=== PATIENT | male | born 1945 | race Caucasian/White ===

== ENCOUNTER 2016-09-22 18:36 | Inpatient (IN) | payer MEDICARE ==
--- NOTE | ~2016-09-22 | EGD ---
EGD REPORT [facility] [address] [address] NAME: ANUSHKA PINEDA : [birth year] STATUS : ADM IN PAT#: [id number] AGE: 71 ADM/REG DATE : 09/22/16 MR#: [id number] REPORT SERV DATE: 09/26/16 DICTATED BY: MAYRA HOLDEN DATE: 09/26/16 REPORT STATUS : Draft [facility] DATE: 09/26/16 Endoscopy Center Patient Name: Anushka Pineda Date of : 1945 Attending MD: MAYRA HOLDEN MD Procedure Date No Time: 09/26/2016 Procedure: Upper GI endoscopy Indications: Iron deficiency anemia Referring MD: Kristina Sanders Medicines: Propofol per Anesthesia Complications: No immediate complications. Procedure: Pre-Anesthesia Assessment: - ASA Grade Assessment: III - A patient with severe systemic disease. After obtaining informed consent, the endoscope was passed under direct vision. Throughout the procedure, the patient's blood pressure, pulse, and oxygen saturations were monitored continuously. The GIF [id number] was introduced through the mouth, and advanced to the third part of duodenum. The upper GI endoscopy was accomplished without difficulty. The patient tolerated the procedure well. Findings: One 15 mm pedunculated polyp with no bleeding and no stigmata of recent bleeding was found in the gastric antrum. Biopsies were taken with a cold forceps for histology. Estimated blood loss: none. The exam was otherwise without abnormality. Impression: - One gastric polyp. Biopsied. - The examination was otherwise normal. Recommendation: - Await pathology results. Procedure Code(s): --- Professional --- 83592, Esophagogastroduodenoscopy, flexible, transoral; with biopsy, single or multiple Diagnosis Code(s): --- Professional --- K31.7, Polyp of stomach and duodenum D50.9, Iron deficiency anemia, unspecified CPT copyright 2013 [employer]. All rights reserved. EGD REPORT [facility] [address] [facility] [place]. [address] NAME: ANUSHKA PINEDA : [birth year] STATUS : ADM IN [facility]#: [id number] AGE: 71 ADM/REG DATE : 09/22/16 MR#: [id number] REPORT SERV DATE: 09/26/16 DICTATED BY: MAYRA HOLDEN. DATE: 09/26/16 REPORT STATUS : Draft TRANSCRIBED BY: [employer] DATE: 09/26/16 The codes documented in this report are preliminary and upon deicer repairer review may be revised to meet current compliance requirements. MAYRA HOLDEN MD 09/26/2016 7:47 AM This report has been signed electronically. Number of Addenda: 0 Note Initiated On: 09/26/2016 7:03 AM Scope Withdrawal Time 0 hours 0 minutes 0 seconds [address] [facility] [place] [address]
--- NOTE | ~2016-09-22 | DS ---
Discharge Summary [facility] [address] [place]. [address] NAME: ANUSHKA CISNEROS : [birth year] STATUS : DIS IN PAT#: [id number] AGE: 71 ADM/REG DATE : 09/22/16 MR#: [id number] REPORT SERV DATE: 09/29/16 DICTATED BY: JESSICA PRATT DATE: 09/28/16 REPORT STATUS : Draft TRANSCRIBED BY: MODL DATE: 09/28/16 ADMISSION DATE: 09/22/2016 DISCHARGE DATE: 09/28/2016 DISCHARGE DIAGNOSES: 1. Symptomatic anemia with iron deficiency anemia. 2. Possible gastrointestinal bleed since the Hemoccult was positive, but his upper and lower endoscopy was negative for any bleeding source. 3. Chronic atrial fibrillation. 4. Eliquis use at home. We are going to resume the Eliquis on discharge. 5. Chronic kidney disease 3. 6. Diabetes mellitus. A1c was 6.0. The patient did not require any insulin use during the hospitalization, suspect to have hypoglycemia episodes with this syncopal episode at home. Therefore, we are going to discontinue his long-acting insulin and decrease his Novolin R insulin down to 10 units a day. CONSULTANTS: Dr. Will and Dr. Oreilly. PROCEDURE: An upper endoscopy and a lower GI endoscopy. HISTORY OF PRESENT ILLNESS: This is a 71-year-old male patient, who has multiple medical problems including chronic atrial fibrillation, Eliquis use, heart failure, and chronic kidney disease, came to the hospital with recurrent syncopal episode at home. Please see dictated H and P. HOSPITAL COURSE: Please see dictated interim discharge summary done by Dr. Alvarenga. The patient was admitted to hospital with a syncopal episode, had a workup for GI due to worsening anemia with worsening renal failure. His Hemoccult was positive, and GI was consulted. They did upper and lower endoscopy. It did not show any significant bleeding or evidence of bleeding. He is tolerating diet and does not have any gypsy bleeding episodes at all. Had a stable hospitalization. Interestingly, the patient did not require any long-acting insulin for seven days while he was in the hospital. He was at a higher dose at home and his A1c was 6.0. Highly suspect to have hypoglycemia episodes at home with long-acting and immediate-acting insulin on board. Therefore, we are going to discontinue the long-acting insulin. I am cutting down his Novolin R down to 10 units once a day and also highly recommend making blood glucose log to see if they need to trend the issues. I explained to the patient and he voiced understanding. DISCHARGE MEDICATIONS: 1. Continue IV medication including Norvasc 10 mg once a day. 2. Wellbutrin 150 mg twice a day. Discharge Summary [address] [address] NAME: ANUSHKA CISNEROS : [birth year] STATUS : DIS IN PAT#: [id number] AGE: 71 ADM/REG DATE : 09/22/16 MR#: [id number] REPORT SERV DATE: 09/29/16 DICTATED BY: JESSICA PRATT DATE: 09/28/16 REPORT STATUS : Draft TRANSCRIBED BY: TAWANDA DATE: 09/28/16 3. Vitamin B 1000 mcg once a day. 4. Flexeril 10 mg twice a day. 5. Vitamin D 1000 units once a day. 6. Lanoxin 0.25 mg once a day. 7. Lasix 20 mg once a day. 8. Imdur 30 mg once a day. 9. Synthroid 50 mcg once a day. 10.Antivert twice a day. 11.Remeron 50 mg once at nighttime. 12.Lopressor 50 mg twice a day. 13.Fish oil twice a day. 14.Prilosec 20 mg twice a day. 15.Flomax 0.4 mg once a day. 16.Aspirin 81 mg once a day. 17.Crestor 5 mg once at night. 18.Eliquis 5 mg twice a day to be resumed on discharge. 19.Tryon as needed. 20.Prinivil 20 mg once a day. 21.Nitrostat as needed. 22.MiraLAX powder once a day. 23.Novolin R was decreased to 10 units a day. 24.Lantus was discontinued. 25.Ferrous sulfate 300 mg twice a day. DISPOSITION: The patient is discharged to home in stable condition after maximizing inpatient benefit. TIME SPENT: More than 30 minutes in discharge. DICTATED BY: Pari Armas/TAWANDA Jessica Pratt M.D. / [id number] CC: Pari Armas DO
--- NOTE | ~2016-09-22 | HP ---
History And Physical [facility] [address] [facility] [place]. [address] NAME: ANUSHKA CISNEROS : [birth year] STATUS : ADM IN [facility]#: [id number] AGE: 71 ADM/REG DATE : 09/22/16 MR#: [id number] REPORT SERV DATE: 09/23/16 DICTATED BY: SEPIDEH RIZO DATE: 09/22/16 REPORT STATUS : Draft TRANSCRIBED BY: MODL DATE: 09/22/16 DATE OF ADMISSION: 09/22/2016 CHIEF COMPLAINT: Symptomatic anemia, dizziness, and syncope. HISTORY OF PRESENT ILLNESS: This is a very pleasant, 71-year-old gentleman. He does have an extensive past medical history significant for atrial fibrillation, on chronic anticoagulation, coronary artery disease with prior CABG, chronic systolic CHF. He has a history of hypertension, chronic kidney disease stage 3, insulin-dependent diabetes, hypothyroidism, history of prior GI bleed with a polypectomy for gastric polyps, and history of diverticulosis who has been presenting today to [facility] with the main complaints of syncopal episode. Patient is a very poor historian, so he is telling me that for couple of months he had these syncopal episode, one two days ago and one today, when apparently he was walking and he suddenly felt that he is going to pass out, was very dizzy and disoriented and he became unresponsive that did not last long, he came around. Again this episode happened two days ago. Patient has been experiencing dizziness with this and increasing weakness. There was no head trauma reported nor has been reported any seizure- like activity. He said that a couple of months ago, he has been in hospital after a similar episode of dizziness with fall and his sugars, at that time, little bit were low. He has had a neurologic workup that essentially was normal with normal MRI. Echo showed a normal ventricular ejection fraction with mild diastolic dysfunction. Nevertheless, he has had some chest discomfort according with patient with these episodes of syncope and as a result patient came to [facility]. Here he has been found anemic and his stools were guaiac positive. Patient denies hematemesis, melena, or hematochezia, but he has had in the past history of anemia likely secondary to chronic disease, but his H and H has been dropping significantly over the last month since 06/23/2016 when his hemoglobin was 9.52, today was 6.2. Patient currently denies any chest pain or shortness of breath. No PND. No orthopnea. He does not have any weakness. He does not have any nausea, vomiting. No diarrhea or constipation. No hematemesis or melena. No hematochezia. No other complaints. After initial evaluation in the emergency room, Hospitalist Service has been asked for admission for further evaluation and treatment. PAST MEDICAL HISTORY: Again significant for coronary artery disease, status post CABG, chronic atrial fibrillation, history of hypertension, chronic kidney disease stage 3, diabetes insulin dependent, hypothyroidism, degenerative joint disease, osteoarthritis, history of gastric polyps with GI bleed, history of diverticulosis. PAST SURGICAL HISTORY: Include CABG, gastric polypectomy, right rotator cuff surgery, back surgery, and cholecystectomy. SOCIAL HISTORY: He denies tobacco, alcohol, or IV drugs. MEDICATIONS: He does not have any drug allergies. MEDICATIONS: At home include Norvasc, Eliquis, aspirin, Wellbutrin, vitamin D3, vitamin B12, Flexeril, Lanoxin, Lasix, Hooven, Lantus, Novolin, Imdur, levothyroxine, Prinivil, Antivert, History And Physical [address] [address] NAME: ANUSHKA CISNEROS : [birth year] STATUS : ADM IN [facility]#: [id number] AGE: 71 ADM/REG DATE : 09/22/16 MR#: [id number] REPORT SERV DATE: 09/23/16 DICTATED BY: SEPIDEH RIZO DATE: 09/22/16 REPORT STATUS : Draft TRANSCRIBED BY: TAWANDA DATE: 09/22/16 Lopressor, Remeron, nitroglycerin, fish oil, Prilosec, MiraLAX, Crestor, and Flomax. REVIEW OF SYSTEMS: A 14-point review of systems has been obtained and pertinent positive has been listed into the history of present illness. Otherwise, negative except those underlying above. FAMILY HISTORY: Significant for dementia and heart disease. PHYSICAL EXAMINATION: VITAL SIGNS: The patient currently is afebrile, blood pressure 139/65, heart rate 60, respiratory rate 17, saturating 98% on room air. GENERAL: He is a very pleasant, well-developed, well-nourished gentleman, in no acute distress. He is alert and oriented x3. Nonfocal. Resting comfortable. He follows commands appropriately. HEENT: Shows pupils equal, round, reactive to light. Extraocular movements intact. No JVD. No lymphadenopathy. No thyromegaly appreciated. CHEST: Evaluation shows bilateral air entry. Clear anteroposterior. No wheezes, crackles, or rhonchi appreciated. CARDIOVASCULAR: Irregularly irregular. S1, S2 positive. No S3, no S4. No murmurs, rubs, or gallops appreciated. ABDOMEN: Soft, positive bowel sounds. Nontender. No guarding. No rebound. EXTREMITIES: No clubbing, cyanosis, or edema. NEUROLOGIC: He is alert and oriented x3. Nonfocal. He follows commands appropriately. LABORATORY DATA: Labs from today include AB.43, 35, 80 on 21% FiO2. His sodium is 145, potassium 5.1, chloride 112, CO2 of 29, BUN 31, creatinine 2.13, glucose is 75. His troponin are 0.06. His BNP is 342.2. His lactate is 1. His white count is 6.7, hemoglobin 6.2, hematocrit 22.5, platelets are 169, and his INR is 1.8. His UA that has been performed here in the emergency room has been negative. His chest x-ray, portable, does not show any acute abnormalities. Cardiomegaly is present and also CT of the brain without contrast does not show any acute intracranial abnormalities and EKG shows atrial fibrillation. ASSESSMENT AND PLAN: This is a 71-year-old gentleman with: 1. Symptomatic anemia. 2. Syncope. 3. History of chronic atrial fibrillation, on anticoagulation. 4. Coronary artery disease. 5. Hypertension. 6. Chronic kidney disease, stage 3. 7. Insulin-dependent diabetes. 8. Hypothyroidism. 9. Hyperlipidemia. 10.Degenerative joint disease, osteoarthritis. PLAN: 1. The patient is going to be admitted to Hospitalist Service. We are going to transfuse him two units of packed red blood cells. We are going to check all anemia studies. History And Physical [address] [address] NAME: ANUSHKA CISNEROS : [birth year] STATUS : ADM IN [facility]#: [id number] AGE: 71 ADM/REG DATE : 09/22/16 MR#: [id number] REPORT SERV DATE: 09/23/16 DICTATED BY: SEPIDEH RIZO DATE: 09/22/16 REPORT STATUS : Draft TRANSCRIBED BY: TAWANDA DATE: 09/22/16 Place him on Protonix IV b.i.d. Continue to guaiac all his stools and consult Dr. Carlin for further recommendation. 2. Syncopal episodes. We are going to order an MRI of the brain, 2D echo, and carotid ultrasound. Rule him out for [place] by serial cardiac enzymes, serial EKGs. We are going to continue his medications, check a digoxin level, rule him out for [place] by serial cardiac enzymes, serial EKG, and consult Dr. Oreilly for further recommendation. We are going to hold his Eliquis and aspirin currently due to anemia with guaiac- positive stools. We are going to continue his beta-monroe. We are going to continue his home medications including his Norvasc, his Lasix as well as his beta-blockers and Imdur. 3. History of diabetes type 2, insulin dependent. While on clear liquid diet, we will hold Lantus and Novolin. Accu-Cheks q.a.c. and q.h.s. and sliding scale subcutaneously. We will check on hemoglobin A1c as well. 4. Hypothyroidism. We are going to continue his home medication. Check a TSH and a free T4. 5. Hyperlipidemia. We will continue his home medications. We will also order an EEG in the morning and check liver function test as well. We are going to provide reasonable pain and nausea control. Check his orthostatics. Check and follow labs. GI and DVT prophylaxis with SCDs. That has been discussed extensively with the patient. All the questions have been answered in full. Further workup and recommendation pending above. It is worthwhile to note that the patient is going to be followed by Hospitalist Service. SAM/TAWANDA Sepideh Rizo M.D. / [id number] CC: Sabino Alvarenga Jr, MD Gregory J. Nieckula,
--- NOTE | ~2016-09-22 | CN ---
Consultation Report [facility] [address] [place]. [address] NAME: ANUSHKA CISNEROS : [birth year] STATUS : ADM IN [facility]#: [id number] AGE: 71 ADM/REG DATE : 09/22/16 MR#: [id number] REPORT SERV DATE: 09/23/16 DICTATED BY: MAYRA HOLDEN DATE: 09/23/16 REPORT STATUS : Draft TRANSCRIBED BY: MODFabian DATE: 09/23/16 CONSULTATION REPORT DATE OF CONSULTATION: 09/23/2016 "I am asked to see this gentleman with anemia." HISTORY OF PRESENT ILLNESS: This 71-year-old gentleman has had a history of peptic ulcer disease. Recent complaints have included weakness and fatigue with a syncopal episode. He was brought to the emergency room and was found to have Hemoccult-positive stools. He denies abdominal pain, change in the bowel habit or visible blood in his stools. He denies nausea or vomiting. OTHER MEDICAL PROBLEMS: Include a history of diabetes, history of atrial fibrillation, coronary artery disease, and diabetes. MEDICATIONS: Listed medications include B12, digoxin, folic acid, Lasix, insulin, Synthroid, and Protonix. PHYSICAL EXAMINATION: CHEST: Clear. CARDIAC: Regular rhythm without rubs or murmurs. ABDOMEN: Soft and nontender. Bowel sounds are normal. No palpable mass. LABORATORY DATA: Lab work on admission showed a hemoglobin of 7 with positive Hemoccults. IMPRESSION: Syncope with anemia and positive Hemoccult stools. PLAN: Scheduled for panendoscopy and colonoscopy in the next 48 hours. Thank you for allowing me to see this gentleman. SHREE/TAWANDA Mayra Holden M.D. / [id number] CC: Sabino Alvarenga Jr, MD Gregory J. Nieckula, DO
--- NOTE | ~2016-09-22 | CN ---
Consultation Report [facility] [address] [place]. [address] NAME: ANUSHKA CISNEROS : [birth year] STATUS : ADM IN [facility]#: [id number] AGE: 71 ADM/REG DATE : 09/22/16 MR#: [id number] REPORT SERV DATE: 09/23/16 DICTATED BY: VIMAL OREILLY DATE: 09/23/16 REPORT STATUS : Draft TRANSCRIBED BY: MODL DATE: 09/23/16 CARDIOLOGY CONSULTATION DATE OF CONSULTATION: HISTORY OF PRESENT ILLNESS: The patient is a 71-year-old white male who is status post coronary artery bypass surgery by Dr. Cheatham in 2006. His last cardiac catheterization by vt was done on 06/07/2012. At this time, he had a stent placed in the saphenous vein graft to the posterolateral branch of the right coronary artery. He had patent grafts to the LAD, diagonal branch, obtuse marginal branch, and posterior descending branch. The patient has a history of recurrent GI bleeding. He presents with a history of syncope while walking in his home. He states he has been having progressive weakness over the past few months. He has not noticed blood in his stool, however. Admission hematocrit was 22.5. Troponin 0.06 and BNP was 342. PAST MEDICAL HISTORY: Remarkable for coronary artery disease with prior bypass surgery and subsequent stenting, chronic atrial fibrillation, essential hypertension, carotid artery disease, GI bleeding, and type 2 diabetes. SOCIAL HISTORY: The patient does not smoke. FAMILY HISTORY: Positive for coronary artery disease. REVIEW OF SYSTEMS: The patient denies cough, wheeze, sputum production, vomiting, diarrhea, or dysuria. PHYSICAL EXAMINATION: VITAL SIGNS: Blood pressure is 130/60, heart rate is 60 and irregular, respirations 16 and nonlabored. ENT: Unremarkable. NECK: Shows no jugular venous distention with good carotid upstroke. CHEST: Clear. CARDIOVASCULAR: The PMI is not displaced. S1 is variable. S2 is narrowly split. No gallop is present. ABDOMEN: Soft and nontender with normal bowel sounds. EXTREMITIES: Remarkable for trace ankle edema. SKIN: Warm and dry with no pallor or icterus. NEURO/PSYCH: The patient is oriented x3 with appropriate affect. DIAGNOSTIC DATA: EKG shows atrial fibrillation with a slow ventricular response and a bifascicular block. Echocardiogram done today shows a left ventricular ejection fraction of 48%, which has not significantly changed from the study of 05/28/2016. IMPRESSION: Consultation Report [place] [address] [place]. [address] NAME: ANUSHKA CISNEROS : [birth year] STATUS : ADM IN [facility]#: [id number] AGE: 71 ADM/REG DATE : 09/22/16 MR#: [id number] REPORT SERV DATE: 09/23/16 DICTATED BY: VIMAL OREILLY DATE: 09/23/16 REPORT STATUS : Draft TRANSCRIBED BY: TAWANDA DATE: 09/23/16 1. Stable coronary artery disease. 2. Chronic atrial fibrillation. 3. Gastrointestinal bleed. 4. Diabetes. 5. Hypertension. 6. History of peripheral vascular disease. RECOMMENDATION: 1. Hold Eliquis. 2. Check digoxin level. 3. Proceed with GI workup as planned including endoscopy if needed. Thank you very much for this consultation. REGINE/TAWANDA Vimal Oreilly M.D., F.A.C.C. / [id number] CC: Sabino Alvarenga Jr, MD Gregory J. Nieckula, DO
--- NOTE | ~2016-09-22 | EGD ---
EGD REPORT [facility] [address] [place]. [address] NAME: ANUSHKA PINEDA : [birth year] STATUS : ADM IN PAT#: [id number] AGE: 71 ADM/REG DATE : 09/22/16 MR#: [id number] REPORT SERV DATE: 09/26/16 DICTATED BY: MAYRA HOLDEN DATE: 09/26/16 REPORT STATUS : Draft TRANSCRIBED BY: [employer] DATE: 09/26/16 Endoscopy Center Patient Name: Anushka Pineda Date of : 1945 Attending MD: MAYRA HOLDEN MD Procedure Date No Time: 09/26/2016 Procedure: Colonoscopy Indications: Iron deficiency anemia Referring MD: Kristina Sanders Medicines: Propofol per Anesthesia Complications: No immediate complications. Procedure: Pre-Anesthesia Assessment: - ASA Grade Assessment: III - A patient with severe systemic disease. After I obtained informed consent, the scope was passed under direct vision. Throughout the procedure, the patient's blood pressure, pulse, and oxygen saturations were monitored continuously. The CF [id number] was introduced through the anus and advanced to the cecum, identified by appendiceal orifice and ileocecal valve. The colonoscopy was performed without difficulty. The patient tolerated the procedure well. The quality of the bowel preparation was good. Findings: Internal hemorrhoids were found during retroflexion and were small. The exam was otherwise without abnormality. Impression: - Internal hemorrhoids. - The examination was otherwise normal. - cecum appears normal and phoyod. withdrawl time 6 minutes. Procedure Code(s): --- Professional --- 54251, Colonoscopy, flexible, proximal to splenic flexure; diagnostic, with or without collection of specimen(s) by brushing or washing, with or without colon decompression (separate procedure) Diagnosis Code(s): --- Professional --- K64.8, Other hemorrhoids D50.9, Iron deficiency anemia, unspecified CPT copyright 2013 [employer]. All rights reserved. EGD REPORT [facility] [address] [facility] [place]. [address] NAME: ANUSHKA PINEDA : [birth year] STATUS : ADM IN [facility]#: [id number] AGE: 71 ADM/REG DATE : 09/22/16 MR#: [id number] REPORT SERV DATE: 09/26/16 DICTATED BY: MAYRA HOLDEN. DATE: 09/26/16 REPORT STATUS : Draft TRANSCRIBED BY: [email or web address] DATE: 09/26/16 The codes documented in this report are preliminary and upon remote medical coder review may be revised to meet current compliance requirements. MAYRA HOLDEN MD 09/26/2016 7:44 AM This report has been signed electronically. Number of Addenda: 0 Note Initiated On: 09/26/2016 6:54 AM Scope Withdrawal Time 0 hours 6 minutes 38 seconds [id number] [facility] [place] [id number]
--- NOTE | ~2016-09-22 | IDS ---
Interim Discharge Summary [facility] [address] [place]. [address] NAME: ANUSHKA CISNEROS : 49 STATUS : ADM IN [facility]#: [id number] AGE: 71 ADM/REG DATE : 09/22/16 MR#: [id number] REPORT SERV DATE: 09/25/16 DICTATED BY: JR. ALVARENGA WILLIAM JOHN DATE: 09/25/16 REPORT STATUS : Draft TRANSCRIBED BY: MODFabian DATE: 09/25/16 ADMISSION DATE: 09/22/2016 DISCHARGE DATE: Date of admission 09/22/2016 and date of summary 09/25/2016, this interim summary covers that time. WORKING DIAGNOSES: 1. Gastrointestinal bleed. 2. Iron deficiency on anemia of chronic disease. 3. Syncope secondary to anemia. 4. Chronic atrial fibrillation. 5. Coronary artery disease. 6. Hypertension. 7. Chronic kidney disease, stage 3. 8. Noninsulin-dependent diabetes mellitus. 9. Hypothyroidism. 10.Hyperlipidemia. 11.Mildly elevated troponin with normal echocardiogram. OPERATIONS, PROCEDURES, AND TREATMENTS: 1. CT of the brain done 09/22/2016, which showed no acute intracranial hemorrhage or other acute intracranial pathology. 2. Chest x-ray done 09/22/2016, which showed mild central congestion with post CABG changes. 3. Carotid flow study done 09/23/2016, which showed category 2 moderate stenosis of the left carotid, the right was category 1, antegrade left vertebral flow. 4. 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 5. Echocardiogram done 09/23/2016, which showed borderline systolic function at 48%. There was concentric left ventricular hypertrophy, marked left atrial dilation, moderate right atrial dilation, right ventricular function was poorly defined. CONSULTING PHYSICIAN: Include Dr. Will of Gastroenterology and Dr. Oreilly of Cardiology. CURRENT MEDICATIONS: Please see today's progress note. HOSPITAL COURSE: The patient is a very pleasant, 71-year-old male with extensive past medical history, presented to the emergency room with symptomatic anemia, dizziness, and syncope. The patient is a very poor historian. However, said he had passed out a few times over the prior few days. There was no head trauma or seizure-like activity. Initial exam showed the patient afebrile, blood pressure 139/65, heart rate 60, respiratory rate 17. There are no focal neurologic deficits. Laboratory was significant for a hemoglobin of 6.2 tonight. EKG, which showed only atrial fibrillation. Interim Discharge Summary [facility] [address] [place]. [address] NAME: ANUSHKA CISNEROS : 49 STATUS : ADM IN PAT#: [id number] AGE: 71 ADM/REG DATE : 09/22/16 MR#: [id number] REPORT SERV DATE: 09/25/16 DICTATED BY: JR. ALVARENGA WILLIAM JOHN DATE: 09/25/16 REPORT STATUS : Draft TRANSCRIBED BY: MODL DATE: 09/25/16 The patient was admitted to the hospital for symptomatic anemia. He was transfused with 3 units of packed red blood cells and that his post transfusion hemoglobin is 8.1 and stable. Iron studies were consistent with some level of iron deficiency superimposed on anemia of chronic disease. His hemoglobins are currently being checked every morning and are stable. The patient had occult blood, which was positive. Regarding GI bleed, the patient was seen and evaluated by Dr. Will. The plan is for an upper and lower endoscopy on Monday. The patient's Eliquis is held since admission. After the patient's endoscopy, we will need to resume Eliquis when okay with Gastroenterology. Regarding syncope, this is likely due to anemia; however, the patient had an MRI, carotid flow study, and echocardiogram, which were unremarkable. The remainder of the patient's health problems were stable and were not addressed. FOLLOWUP ISSUES: 1. Upper and lower endoscopy, plan for 09/26/2016. 2. Will need to resume Eliquis when okay with GI. For today's exam and laboratory, please see daily progress note. WJF/MODL Sabino Alvarenga Jr, MD / [id number] CC: Sabino Alvarenga Jr, MD Gregory J. Nieckula, DO
[~2016-09-22 18:36] MED LIST: ACET500CAP PO; ADVIL PM PO; AMOXIL500C PO; ASAB PO; BALMEX11.3 % TOP; BUDEPRION150 MG PO; BUPROBAN150 MG PO; C1 PO; COUMADIN10 MG PO; COUMADIN7.5 MG PO; CRESTOR40 MG PO; CYANO1000T PO; DIGITEK0.125 MG PO; DIGITEK0.25 MG PO; DIGOXIN PO; DSS PO; EFFIENT10 PO; ELIQUIS 2.5 MG2.5 MG PO; ELIQUIS 5 MG TAB5 MG PO; FISH OIL PO; FISH-EPA1000 MG PO; FLAG500TAB PO; FLEX; FLEX PO; FLOMAX4 PO; GLUCOTRO10 PO; GLUCOTROL5 PO; HALF81 PO; IMDUR30 PO; INSNOVR SC; JANTOVEN1 MG PO; JANTOVEN10 MG PO; JANTOVEN7.5 MG PO; KLONO5 PO; KLOR-CON 1010 MEQ PO; KLOR-CON M1010 MEQ PO; L20 PO; LAN25 PO; LANTUS SC; LANTUS SQ; LANTUSCART SC; LEVAQUIN750 MG PO; LEVEMIR SC; LEVOTHYROXIN25 MCG PO; LEVOTHYROXIN50 MCG PO; LIPITOR20 PO; LISINOPRIL40 MG PO; LOP100 PO; LOP25 PO; LOP50 PO; LORTAB10 PO; MCZ125 PO; MICRO-K10 MEQ PO; MIRALAX POWDER1 PKT PO; MIRALAXPKT PO; NITROQUICK0.4 MG SL; NITROSTAT0.4 MG SL; NORCO1 TAB PO; NORV10 PO; NORV5 PO; OMEGA 3 PO; OTC SLEEP AID PO; OXECTA5 MG PO; OXYCOD; PLAVIX PO; POTASSIUM; PRILO PO; PRIN20 PO; PROSCAR5 PO; RELA5 PO; REM15 PO; STARLIX60 PO; SUPER OMEGA PO; SYN.025B PO; SYN.05 PO; VITAMIN B-121000 MC1 SL; VITAMIN D31000 UNIT PO; WELLSR150 PO; ZESTORETIC1 TA1 PO; ZESTRIL20 MG PO; ZOCOR20 PO; ZOCOR40 PO
[2016-09-22 20:04] LABS: BASOPHILS 0.3 %; BASOPHILS ABSOLUTE 0.02 10/3/uL (0.0-0.16); EOSINOPHILS 1.8 %; EOSINOPHILS ABSOLUTE 0.12 10/3/uL (0.0-0.53); ER CBC TAT 0 Hrs 03 Mins; HEMATOCRIT 22.5 % (40.0-51.0); IMMATURE GRANULOCYTES 0.1 %; IMMATURE GRANULOCYTES ABSOLUTE 0.01 10/3/uL (0.0-0.11); LYMPHOCYTES 9.6 %; LYMPHOCYTES ABSOLUTE 0.64 10/3/uL (0.67-4.30); MEAN CORPUS HGB CONC 27.6 g/dL (32.0-36.0); MEAN CORPUSCULAR VOLUME 79.8 fL (80-100); MEAN PLATELET VOLUME 9.4 fL (9.2-13.0); NEUTROPHILS 82.2 %; NEUTROPHILS ABSOLUTE 5.48 10/3/uL (2.02-8.40); PLATELET COUNT 169 10/3/uL (150-400); RED CELL COUNT 2.82 10/6/uL (4.7-6.1); WHITE BLOOD CELLS 6.7 10/3/uL (4.5-10.5)
[2016-09-22 20:05] LABS: HEMOGLOBIN 6.2 g/dL (13.6-17.8)
[2016-09-22 20:06] LABS: MANUAL DIFF NO %
[2016-09-22 20:11] LABS: INSTRUMENT SERIAL # 8087; pH 7.43 (7.37-7.43)
[2016-09-22 20:12] LABS: ALLENS TEST Pos; BE (BASE EXCESS) -0.8 MEQ/L (0 +/- 2.5); HCO3 (ACTUAL BICARBONATE) 22.9 MEQ/L (23-27); OPERATOR ID 17589; PCO2 (CO2 TENSION) 35 MMHG (35-45); PO2 (O2 TENSION) 80 MMHG (79-93); SAMPLE Arterial
[2016-09-22 20:13] LABS: INTERNATIONAL NORMAL RATI 1.8 UNITS (-)
[2016-09-22 20:14] LABS: PARTIAL THROMBO TIME 39.2 SEC (22.5-37.2)
[2016-09-22 20:19] LABS: CALCIUM, SERUM 8.7 MG/DL (8.5-10.4); CHLORIDE, SERUM 112 MMOL/L (96-112); CO2 (CARBON DIOXIDE) 29 MMOL/L (24-34); CREATININE 2.13 MG/DL (0.70-1.30); GFR AFRICAN AMERICAN 36 ML/MIN (>=60); GFR NON AFRICAN AMERICAN 31 ML/MIN (>=60); POTASSIUM, SERUM 5.1 MMOL/L (3.5-5.3); PROTIME (NOT ORD) 20.7 SEC (12.0-14.5); SODIUM, SERUM 145 MMOL/L (135-148)
[2016-09-22 20:21] LABS: BUN (BLOOD UREA NITROGEN) 31 MG/DL (6-23); CHEST PAIN PROFILE TAT 0 Hrs 20 Mins; GLUCOSE, SERUM 75 MG/DL (60-99); TROPONIN I 0.06 NG/ML (<0.05)
[2016-09-22] MEDS ORDERED: PRILO PO (20:33)
[2016-09-22] MEDS ORDERED: HALF81 PO (20:34)
[2016-09-22] MEDS ORDERED: FISH-EPA1000 MG PO (20:35)
[2016-09-22] MEDS ORDERED: SYN.05 PO (20:36)
[2016-09-22] MEDS ORDERED: ELIQUIS 5 MG TAB5 MG PO (20:37)
[2016-09-22] MEDS ORDERED: CRESTOR5 MG PO (20:37)
[2016-09-22] MEDS ORDERED: INSNOVR SC (20:39)
[2016-09-22] MEDS ORDERED: FLEX PO (20:41)
[2016-09-22] MEDS ORDERED: L20 PO (20:42)
[2016-09-22] MEDS ORDERED: WELLSR150 PO (20:42)
[2016-09-22] MEDS ORDERED: LAN25 PO (20:44)
[2016-09-22] MEDS ORDERED: PRIN20 PO (20:45)
[2016-09-22] MEDS ORDERED: MCZ25 PO (20:45)
[2016-09-22] MEDS ORDERED: NORCO1 TAB PO (20:45)
[2016-09-22] MEDS ORDERED: MCZ125 PO (20:46)
[2016-09-22] MEDS ORDERED: LOP50 PO (20:46)
[2016-09-22] MEDS ORDERED: NITROSTAT0.4 MG SL (20:47)
[2016-09-22] MEDS ORDERED: MIRALAX POWDER1 PKT PO (20:48)
[2016-09-22] MEDS ORDERED: IMDUR30 PO (20:50)
[2016-09-22] MEDS ORDERED: LANTUS SC (20:50)
[2016-09-22] MEDS ORDERED: VITAMIN D31000 UNIT PO (20:51)
[2016-09-22] MEDS ORDERED: CYANO1000T PO (20:52)
[2016-09-22] MEDS ORDERED: FLOMAX4 PO (20:54)
[2016-09-22] MEDS ORDERED: REM15 PO (20:54)
[2016-09-22] MEDS ORDERED: NORV10 PO (20:54)
[2016-09-22 21:11] LABS: ASCORBIC ACID (UR NOT ORDER) NEG (NEG); BILIRUBIN, URINE NEGATIVE (NEG); ER URINALYSIS TAT 0 Hrs 13 Mins; KETONE, URINE NEGATIVE (NEG); LEUKOCYTE ESTERASE(NOT OR NEG (NEG); NITRITE (URINE) NEG (NEG); WBC (NOT ORDERED) (RFLEX) 1 (0-5)
[2016-09-23 07:10] LABS: BASOPHILS 0.1 %; BASOPHILS ABSOLUTE 0.01 10/3/uL (0.0-0.16); EOSINOPHILS ABSOLUTE 0.14 10/3/uL (0.0-0.53); IMMATURE GRANULOCYTES 0.3 %; IMMATURE GRANULOCYTES ABSOLUTE 0.02 10/3/uL (0.0-0.11); INTERNATIONAL NORMAL RATI 1.6 UNITS (-); LYMPHOCYTES 15.5 %; LYMPHOCYTES ABSOLUTE 1.08 10/3/uL (0.67-4.30); MEAN CORPUSCULAR VOLUME 78.9 fL (80-100); MEAN PLATELET VOLUME 9.7 fL (9.2-13.0); MONOCYTES 7.5 %; MONOCYTES ABSOLUTE 0.52 10/3/uL (0.21-1.20); NEUTROPHILS 74.6 %; PLATELET COUNT 163 10/3/uL (150-400); PROTIME (NOT ORD) 19.1 SEC (12.0-14.5); RED CELL COUNT 3.04 10/6/uL (4.7-6.1)
[2016-09-23 07:11] LABS: MANUAL DIFF NO %; MEAN CORPUS HGB CONC 29.2 g/dL (32.0-36.0)
[2016-09-23 07:56] LABS: A/G RATIO 1.1 (0.7-1.9); ALBUMIN 3.6 G/DL (3.5-5.0); ALKALINE PHOSPHATASE 52 U/L (45-117); BUN (BLOOD UREA NITROGEN) 33 MG/DL (6-23); CALCIUM, SERUM 8.5 MG/DL (8.5-10.4); CHLORIDE, SERUM 111 MMOL/L (96-112); CHOL/HDL RATIO(NOT ORDER) 4.6 (0-5); CHOLESTEROL 64 MG/DL (< 200); CK-MB 5.5 NG/ML; CO2 (CARBON DIOXIDE) 27 MMOL/L (24-34); CPK 274 U/L (0-200); CREATININE 2.12 MG/DL (0.70-1.30); DIRECT BILIRUBIN 0.2 MG/DL (0.0-0.4); FERRITIN 14 NG/ML (26-388); FREE T4 0.98 NG/DL (0.76-1.46); GFR AFRICAN AMERICAN 36 ML/MIN (>=60); GFR NON AFRICAN AMERICAN 31 ML/MIN (>=60); GLOBULIN 3.3 G/DL (2.5-4.1); GLUCOSE, SERUM 65 MG/DL (60-99); HDL CHOLESTEROL 14 MG/DL (> 39); INDIRECT BILIRUBIN(NOT ORDER) 0.6 MG/DL (0.1-0.9); IRON BINDING CAPACITY 415 MCG/DL (250-450); IRON, SERUM 38 MCG/DL (35-150); LDL CHOLESTEROL 33 MG/DL (< 130); NON-HDL CHOLESTEROL 50 MG/DL (< 160); PHOSPHORUS, SERUM 3.3 MG/DL (2.5-4.5); POTASSIUM, SERUM 4.7 MMOL/L (3.5-5.3); SGOT(AST) 19 U/L (5-40); SGPT(ALT) 22 U/L (5-65); SODIUM, SERUM 144 MMOL/L (135-148); TOTAL BILIRUBIN 0.8 MG/DL (0-1.2); TOTAL PROTEIN 6.9 G/DL (6.0-8.5); TRIGLYCERIDE 89 MG/DL (< 150)
[2016-09-23 07:57] LABS: ALCOHOL < 10 MG/DL (0); DIGOXIN 1.4 NG/ML (0.8-2.0); SALICYLATE < 1.7 MG/DL (-); TROPONIN I 0.07 NG/ML (<0.05)
[2016-09-23 08:00] LABS: B NATRIURETIC PEPTIDE (BNP) 292.9 PG/ML (< 100.0)
[2016-09-23 08:27] LABS: SED RATE 18 MM/HR (0-15)
[2016-09-23 13:52] LABS: HEMATOCRIT 25.8 % (40.0-51.0); HEMOGLOBIN 7.4 g/dL (13.6-17.8)
[2016-09-23 14:07] LABS: CK-MB 5.4 NG/ML; CKMB INDEX (NOT ORD) 1.9; TROPONIN I 0.06 NG/ML (<0.05)
[2016-09-23 14:18] LABS: GLYCOHEMOGLOBIN (HbA1c) 6.1 % (4.7-6.1)
[2016-09-24 02:52] LABS: HEMATOCRIT 27.6 % (40.0-51.0); HEMOGLOBIN 7.9 g/dL (13.6-17.8)
[2016-09-24 05:21] LABS: BASOPHILS 0.3 %; BASOPHILS ABSOLUTE 0.02 10/3/uL (0.0-0.16); EOSINOPHILS 2.6 %; EOSINOPHILS ABSOLUTE 0.18 10/3/uL (0.0-0.53); HEMATOCRIT 26.7 % (40.0-51.0); HEMOGLOBIN 7.8 g/dL (13.6-17.8); IMMATURE GRANULOCYTES 0.3 %; IMMATURE GRANULOCYTES ABSOLUTE 0.02 10/3/uL (0.0-0.11); LYMPHOCYTES 13.7 %; LYMPHOCYTES ABSOLUTE 0.96 10/3/uL (0.67-4.30); MEAN CORPUS HGB CONC 29.2 g/dL (32.0-36.0); MEAN CORPUSCULAR HEMOGLOB 23.6 pg (26.0-34.0); MEAN CORPUSCULAR VOLUME 80.9 fL (80-100); MEAN PLATELET VOLUME 10.3 fL (9.2-13.0); MONOCYTES ABSOLUTE 0.42 10/3/uL (0.21-1.20); NEUTROPHILS 77.1 %; NEUTROPHILS ABSOLUTE 5.39 10/3/uL (2.02-8.40); PLATELET COUNT 162 10/3/uL (150-400); RBC DISTRIBUTION WIDTH 17.7 % (12.0-16.0)
[2016-09-24 05:22] LABS: MANUAL DIFF NO %
[2016-09-24 05:43] LABS: A/G RATIO 1.1 (0.7-1.9); ALBUMIN 3.5 G/DL (3.5-5.0); ALKALINE PHOSPHATASE 54 U/L (45-117); CALCIUM, SERUM 8.4 MG/DL (8.5-10.4); CHLORIDE, SERUM 110 MMOL/L (96-112); CO2 (CARBON DIOXIDE) 26 MMOL/L (24-34); CREATININE 2.07 MG/DL (0.70-1.30); GFR AFRICAN AMERICAN 37 ML/MIN (>=60); GFR NON AFRICAN AMERICAN 32 ML/MIN (>=60); GLOBULIN 3.2 G/DL (2.5-4.1); POTASSIUM, SERUM 4.5 MMOL/L (3.5-5.3); SGOT(AST) 27 U/L (5-40); SGPT(ALT) 28 U/L (5-65); SODIUM, SERUM 143 MMOL/L (135-148); TOTAL BILIRUBIN 0.6 MG/DL (0-1.2); TOTAL PROTEIN 6.7 G/DL (6.0-8.5)
[2016-09-24 05:44] LABS: BUN (BLOOD UREA NITROGEN) 29 MG/DL (6-23); DIGOXIN 1.4 NG/ML (0.8-2.0); GLUCOSE, SERUM 111 MG/DL (60-99)
[2016-09-24 12:54] LABS: HEMATOCRIT 26.9 % (40.0-51.0); HEMOGLOBIN 7.9 g/dL (13.6-17.8)
[2016-09-25 01:07] LABS: HEMATOCRIT 27.9 % (40.0-51.0); HEMOGLOBIN 8.1 g/dL (13.6-17.8)
[2016-09-27 05:37] LABS: BASOPHILS 0.2 %; BASOPHILS ABSOLUTE 0.01 10/3/uL (0.0-0.16); EOSINOPHILS 3.2 %; EOSINOPHILS ABSOLUTE 0.16 10/3/uL (0.0-0.53); HEMATOCRIT 26.9 % (40.0-51.0); HEMOGLOBIN 7.7 g/dL (13.6-17.8); IMMATURE GRANULOCYTES 0.2 %; IMMATURE GRANULOCYTES ABSOLUTE 0.01 10/3/uL (0.0-0.11); LYMPHOCYTES 17.9 %; LYMPHOCYTES ABSOLUTE 0.89 10/3/uL (0.67-4.30); MEAN CORPUS HGB CONC 28.6 g/dL (32.0-36.0); MEAN CORPUSCULAR HEMOGLOB 23.4 pg (26.0-34.0); MEAN CORPUSCULAR VOLUME 81.8 fL (80-100); MEAN PLATELET VOLUME 10.1 fL (9.2-13.0); MONOCYTES 6.4 %; MONOCYTES ABSOLUTE 0.32 10/3/uL (0.21-1.20); NEUTROPHILS 72.1 %; NEUTROPHILS ABSOLUTE 3.58 10/3/uL (2.02-8.40); PLATELET COUNT 139 10/3/uL (150-400); RED CELL COUNT 3.29 10/6/uL (4.7-6.1)
[2016-09-27 05:40] LABS: MANUAL DIFF NO %
[2016-09-27 11:42] LABS: RETICULOCYTE COUNT 2.9 % (0.5-2.5); RETICULOCYTE COUNT ABSOLUTE 91.1 10/3/uL (20.2-119.8)
[2016-09-28 05:43] LABS: BASOPHILS 0.2 %; BASOPHILS ABSOLUTE 0.01 10/3/uL (0.0-0.16); EOSINOPHILS 3.9 %; EOSINOPHILS ABSOLUTE 0.21 10/3/uL (0.0-0.53); HEMATOCRIT 29.3 % (40.0-51.0); HEMOGLOBIN 8.6 g/dL (13.6-17.8); IMMATURE GRANULOCYTES 0.4 %; IMMATURE GRANULOCYTES ABSOLUTE 0.02 10/3/uL (0.0-0.11); LYMPHOCYTES 16.5 %; LYMPHOCYTES ABSOLUTE 0.89 10/3/uL (0.67-4.30); MEAN CORPUS HGB CONC 29.4 g/dL (32.0-36.0); MEAN CORPUSCULAR VOLUME 81.6 fL (80-100); MONOCYTES ABSOLUTE 0.43 10/3/uL (0.21-1.20); NEUTROPHILS ABSOLUTE 3.83 10/3/uL (2.02-8.40); PLATELET COUNT 136 10/3/uL (150-400); RBC DISTRIBUTION WIDTH 18.7 % (12.0-16.0); RED CELL COUNT 3.59 10/6/uL (4.7-6.1); WHITE BLOOD CELLS 5.4 10/3/uL (4.5-10.5)
[2016-09-28 05:44] LABS: MANUAL DIFF NO %
[2016-09-28 05:59] LABS: CHLORIDE, SERUM 109 MMOL/L (96-112); CO2 (CARBON DIOXIDE) 25 MMOL/L (24-34); CREATININE 2.11 MG/DL (0.70-1.30); GFR AFRICAN AMERICAN 36 ML/MIN (>=60); GFR NON AFRICAN AMERICAN 31 ML/MIN (>=60); GLUCOSE, SERUM 108 MG/DL (60-99); POTASSIUM, SERUM 4.9 MMOL/L (3.5-5.3); SODIUM, SERUM 139 MMOL/L (135-148)
[2016-09-28 06:01] LABS: BUN (BLOOD UREA NITROGEN) 22 MG/DL (6-23)
[2016-09-28] MEDS ORDERED: FESO4 PO (09:35)
[2016-10-14] MEDS ORDERED: ELIQUIS 5 MG TAB5 MG PO (21:06)
[2016-10-14] MEDS ORDERED: WELLSR150 PO (21:06)
[2016-10-14] MEDS ORDERED: NORV10 PO (21:06)
[2016-10-14] MEDS ORDERED: VITAMIN D31000 UNIT PO (21:06)
[2016-10-14] MEDS ORDERED: CYANO1000T PO (21:07)
[2016-10-14] MEDS ORDERED: LAN25 PO (21:07)
[2016-10-14] MEDS ORDERED: FESO4 PO (21:07)
[2016-10-14] MEDS ORDERED: FLEX PO (21:07)
[2016-10-14] MEDS ORDERED: L20 PO (21:07)
[2016-10-14] MEDS ORDERED: NORCO1 TAB PO (21:08)
[2016-10-14] MEDS ORDERED: IMDUR30 PO (21:08)
[2016-10-14] MEDS ORDERED: PRIN20 PO (21:08)
[2016-10-14] MEDS ORDERED: SYN.05 PO (21:08)
[2016-10-14] MEDS ORDERED: CRESTOR5 MG PO (21:48)
[2016-10-14] MEDS ORDERED: MCZ125 PO (21:48)
[2016-10-14] MEDS ORDERED: REM15 PO (21:48)
[2016-10-14] MEDS ORDERED: FISH-EPA1000 MG PO (21:49)
[2016-10-14] MEDS ORDERED: FLOMAX4 PO (21:51)
[2016-10-14] MEDS ORDERED: ASAB PO (22:30)
[2016-10-14] MEDS ORDERED: LANTUS SC (22:30)
[2016-10-14] MEDS ORDERED: NITROSTAT0.4 MG SL (22:32)
[2016-10-14] MEDS ORDERED: PRILO PO (22:32)
[2016-10-14] MEDS ORDERED: MIRALAX POWDER1 PKT PO (22:32)
== END 2016-09-28 12:21 | disposition home or self-care (01) | DRG 378 ==
LOC: ER 18:36 → 5NO 23:18
PROVIDERS: Internal Medicine; Internal Medicine Gastroenterology; Specialist
PROC: 30233N1 Transfusion of Nonautologous Red Blood Cells into Peripheral Vein, Percutaneous Approach (ICD-10-PCS; principal; 2016-09-22)
PROC: 0DJD8ZZ Inspection of Lower Intestinal Tract, Via Natural or Artificial Opening Endoscopic (ICD-10-PCS; 2016-09-26)
PROC: 0DB68ZX Excision of Stomach, Via Natural or Artificial Opening Endoscopic, Diagnostic (ICD-10-PCS; 2016-09-26 07:00)
DX: K92.2 Gastrointestinal hemorrhage, unspecified (principal); I13.0 Hypertensive heart and chronic kidney disease with heart failure and stage 1 through stage 4 chronic kidney disease, or unspecified chronic kidney disease; E11.22 Type 2 diabetes mellitus with diabetic chronic kidney disease; I48.2 Chronic atrial fibrillation; N18.3 Chronic kidney disease, stage 3 (moderate); I50.22 Chronic systolic (congestive) heart failure; R55 Syncope and collapse; K31.7 Polyp of stomach and duodenum; E03.9 Hypothyroidism, unspecified; I25.10 Atherosclerotic heart disease of native coronary artery without angina pectoris; E78.5 Hyperlipidemia, unspecified; Z95.1 Presence of aortocoronary bypass graft; Z90.49 Acquired absence of other specified parts of digestive tract; Z98.890 Other specified postprocedural states; Z79.4 Long term (current) use of insulin; Z82.49 Family history of ischemic heart disease and other diseases of the circulatory system; D50.9 Iron deficiency anemia, unspecified; Z95.5 Presence of coronary angioplasty implant and graft
CPT/HCPCS: 36415; 36430; 36600; 70450; 70551; 71010; 80048; 80053; 80061; 80162; 80307; 81001; 82140; 82248; 82272; 82550; 82553; 82607; 82728; 82746; 82805; 82962; 83036; 83540; 83550; 83605; 83615; 83735; 83880; 84100; 84439; 84443; 84484; 85014; 85018; 85025; 85045; 85610; 85652; 85730; 86850; 86900; 86901; 86920; 87040; 88305; 93005; 93306; 93880; 96374; 99285; A9270-GY; C9113; J1940; J2405; P9016